=== PATIENT | male | born 1990 | race Caucasian/White ===

== ENCOUNTER 2022-02-27 18:00 | Outpatient (CLI) | payer BC | END 2022-02-27 18:01 | disposition home or self-care (01) | LOC: SLEEPLAB 18:00 | PROVIDERS: ATTEND Student in an Organized Health Care Education/Training Program | DX: G47.33 Obstructive sleep apnea (adult) (pediatric) (principal); G47.10 Hypersomnia, unspecified | CPT/HCPCS: 95800 ==